=== PATIENT | male | born 1995 | race Caucasian/White ===

== ENCOUNTER 2017-05-22 12:08 | Emergency (ER) | payer OTHER ==
[~2017-05-22] VITALS: Ht 182.9 cm; Wt 90.7 kg
[2017-05-22 13:50] VITALS: BP 142/75
--- NOTE | 2017-05-22 13:54 | NUR ---
PT IN CUSTODY Patient discharged to home in stable condition. Written and verbal after care instructions given. Patient verbalizes understanding of instruction.
== END 2017-05-22 13:54 ==
LOC: ER 12:10
DX: F11.10 Opioid abuse, uncomplicated (principal)
CPT/HCPCS: A4606; Q0162; Z7610